=== PATIENT | male | born 1995 | race Caucasian/White ===

== ENCOUNTER 2018-01-20 15:55 | Emergency (ER) | payer BC ==
[2018-01-20] MEDS ORDERED: 0.9 % SODIUM CHLORIDE 1,000 ML BAG IV ONE ×2 (16:49→17:44)
[2018-01-20] MEDS ORDERED: ONDANSETRON HCL IV 4 MG/2 ML VIAL IVP ONE ×2 (16:49→18:35)
[2018-01-20] MEDS ORDERED: PANTOPRAZOLE SODIUM IV 40 MG VIAL IVP ONE (16:52)
--- NOTE | 2018-01-20 16:54 | Emergency Department Record ---
History of Present Illness - General Chief complaint: Vomiting Stated complaint: VOMITING Time Seen by Provider: 01/20/18 16:44 Source: Patient Mode of Arrival: Ambulatory Limitations: No limitations - History of Present Illness Initial comments: 22 yo male presents with nausea and vomiting since this morning. No diarrhea. The patient reports that he has had this occur several times in the morning the last month. He gets nauseated and sweating. Most days this passes. He had a normal appetite last night. He ate 4 slices of pizza. No abdominal surgery history. No fever. No history of GI disease. Currently his pain is epigastric. He denies any pain below the umbilicus. MD complaint: Abdominal pain, Nausea, Vomiting Onset/Timin -: Hour(s) Description of Vomiting: Bilious Location: Diffuse Radiation: Epigastric Severity scale (1-10): 5 Quality: Aching Consistency: Intermittent Improves with: None Worsens with: None Context: Other Associated Symptoms: Nausea/vomiting - Related Data Previous Rx's Medication Instructions Recorded Ondansetron [Zofran Odt] 4 mg PO Q8H #20 tab.rapdis 01/20/18 Pantoprazole Sodium [Protonix] 20 mg PO DAILY #30 tablet. 01/20/18 Allergies Allergy/AdvReac Type Severity Reaction Status Date / Time amoxicillin Allergy Intermediate PT UNSURE Verified 01/20/18 16:11 OF REACTION Travel Screening - Travel/Exposure Within Last 30 Days Have you traveled within the last 30 days?: No Review of Systems Constitutional: Reports: Chills, Weakness Eyes: Denies: Eye discharge, Eye pain, Photophobia, Vision change ENT: Denies: Congestion, Throat pain Respiratory: Denies: Cough, Dyspnea, Hemoptysis, Stridor, Wheezes Cardiovascular: Denies: Chest pain, Palpitations, Syncope Endocrine: Reports: Fatigue. Denies: Polydipsia, Polyuria Gastrointestinal: Reports: As per HPI, Abdominal pain, Nausea, Vomiting. Denies : Constipation, Diarrhea, Hematemesis, Hematochezia, Melena Genitourinary: Denies: Dysuria, Frequency, Hematuria Musculoskeletal: Denies: Arthralgia, Back pain, Neck pain Skin: Denies: Bruising, Change in color, Rash Neurological: Denies: Confusion, Headache, Numbness, Vertigo, Weakness Psychiatric: Denies: Anxiety Hematological/Lymphatic: Denies: Easy bleeding, Easy bruising, Swollen glands Past Medical History - SOCIAL HISTORY Smoking Status: Never smoker Alcohol Use: None Drug Use: None - RESPIRATORY Hx Respiratory Disorders: No - CARDIOVASCULAR Hx Cardio Disorders: No - NEURO Hx Neuro Disorders: No - GI Hx GI Disorders: No - Hx Genitourinary Disorders: No - ENDOCRINE Hx Endocrine Disorders: No - MUSCULOSKELETAL Hx Musculoskeletal Disorders: No - PSYCH Hx Psych Problems: No - HEMATOLOGY/ONCOLOGY Hx Hematology/Oncology Disorders: No Family Medical History Any Significant Family History?: No Physical Exam - General General Appearance: Alert, Oriented x3, Cooperative, No acute distress Limitations: No limitations - Head Head exam: Normal inspection - Eye Eye exam: Normal appearance, PERRL. negative: Conjunctival injection, Scleral icterus - ENT ENT exam: Normal exam, Mucous membranes moist Ear exam: Normal external inspection Nasal Exam: Normal inspection Mouth exam: Normal external inspection Teeth exam: Normal inspection Throat exam: Normal inspection. negative: Tonsillar erythema, Tonsillomegaly, Tonsillar exudate, R peritonsillar mass, L peritonsillar mass - Neck Neck exam: Normal inspection, Full ROM. negative: Tenderness - Respiratory Respiratory exam: Normal lung sounds bilaterally. negative: Respiratory distress - Cardiovascular Cardiovascular Exam: Regular rate, Normal rhythm, Normal heart sounds - GI/Abdominal GI/Abdominal exam: Soft, Tenderness (Very soft abdomen, tender epigastric). negative: Distended, Guarding, Rebound, Rigid - Rectal Rectal exam: Deferred - exam: Deferred - Extremities Extremities exam: Normal inspection, Full ROM, Normal capillary refill. negative: Tenderness - Back Back exam: Reports: Normal inspection, Full ROM. Denies: Muscle spasm, Rash noted, Tenderness - Neurological Neurological exam: Alert, Normal gait, Oriented X3 - Psychiatric Psychiatric exam: Normal affect, Normal mood. negative: Agitated, Anxious - Skin Skin exam: Dry, Intact, Normal color, Warm Course Vital Signs 01/20/18 16:07 Temperature 98.0 F Pulse Rate 91 H Respiratory 20 Rate Blood Pressure 159/112 Pulse Ox 96 - Reevaluation(s) Reevaluation #1: 01/20/18 17:45 The labs were reviewed CBC WBC is 13.1 CMP HCO3 is low at 17 and AG is elevated at 34. He is completing his first bag of IVF. He reports he is feeling much better We discussed the labs. He will be hydrated with addition IVF and the labs with be rechecked He will be referred to GI for his epigastric pain and recurrent vomiting episodes. His nausea is well controlled. 01/20/18 19:18 The patient continues to do very well. Tolerating PO. Nausea very minimal. After the 3rd liter the plan is to recheck the labs. Medical Decision Making - Lab Data Result diagrams: 01/20/18 16:15 01/20/18 16:15 Disposition Disposition: Discharge Clinical Impression: Vomiting, Epigastric pain, Dehydration Disposition: Home, Self-Care Condition: (1) Good Instructions: Acute Nausea and Vomiting (ED) Additional Instructions: Stay well hydrated Avoid alcohol for the next 2 weeks Avoid anti-inflammatory medications such as Motrin. Prescriptions: Ondansetron [Zofran Odt] 4 mg PO Q8H #20 tab.rapdis Pantoprazole Sodium [Protonix] 20 mg PO DAILY #30 tablet. Referrals: PREETHI TEIXEIRA [DOCTOR OF OSTEOPATH] - [facility] Specialty Clinics [Provider Group] Forms: Patient Portal Access Quality - Quality Measures Quality Measures: N/A - Blood Pressure Screening Does Patient Have Any of the Following: No Blood Pressure Classification: Hypertensive Reading Systolic Measurement: 159 Diastolic Measurement: 112 Screening for High Blood Pressure: < Pre-Hypertensive BP, F/U Documented > [ G8950] Pre-Hypertensive Follow-up Interventions: Referral to alternative/primary care provider.
[2018-01-20 16:58] LABS: HEMATOCRIT 48.7 % (42.0-52.0); HEMOGLOBIN 16.9 gm/dl (14.0-18.0); MEAN CELL VOLUME 92.8 fl (81-97); MEAN CORPUSCULAR HEMOGLOBIN 32.2 pg (27-33); MEAN CORPUSCULAR HGB CONC 34.7 g/dl (32-36); PLATELET COUNT 318 K/uL (130-400); RED BLOOD COUNT 5.25 M/uL (4.40-5.70); RED CELL DISTRIBUTION WIDTH 13.2 % (11.5-14.5); WHITE BLOOD COUNT W/O DIFF 13.1 K/uL (4.2-12.2)
[2018-01-20 17:07] LABS: BLOOD UREA NITROGEN 12 mg/dL (6-20); CREATININE 0.6 mg/dL (0.7-1.2); EST GLOMERULAR FILTRATION RATE > 60 mL/min
[2018-01-20 17:08] LABS: TOTAL PROTEIN 8.7 g/dL (6.6-8.7)
[2018-01-20 17:10] LABS: GLUCOSE,RANDOM 102 mg/dL (74-109)
[2018-01-20 17:13] LABS: ALB/GLOB RATIO 1.8 (1.1-1.8); ALBUMIN 5.6 g/dL (4.0-5.0); ALKALINE PHOSPHATASE 81 U/L (40-129); ALT/SGPT 66 U/L (<41); AST/SGOT 64 U/L (10.0-50.0); LIPASE 37 U/L (13-60)
[2018-01-20 17:23] LABS: THYROID STIMULATING HORMONE 1.13 uIU/mL (0.270-4.20)
[2018-01-20] MEDS ORDERED: ONDANSETRON 4 MG ODT TABLET SL ONE (20:05)
[2018-01-20 20:11] LABS: BLOOD UREA NITROGEN 11 mg/dL (6-20); CREATININE 0.5 mg/dL (0.7-1.2); EST GLOMERULAR FILTRATION RATE > 60 mL/min; GLUCOSE,RANDOM 123 mg/dL (74-109)
--- NOTE | 2018-01-20 20:16 | Emergency Department Record ---
History of Present Illness - General Chief complaint: Vomiting Stated complaint: VOMITING Time Seen by Provider: 01/20/18 16:44 Source: Patient Mode of Arrival: Ambulatory Limitations: No limitations - History of Present Illness MD complaint: Abdominal pain, Nausea, Vomiting Onset/Timin -: Hour(s) Description of Vomiting: Bilious Location: Diffuse Radiation: Epigastric Severity scale (1-10): 5 Quality: Aching Consistency: Intermittent Improves with: None Worsens with: None Context: Other Associated Symptoms: Nausea/vomiting - Related Data Previous Rx's Medication Instructions Recorded Ondansetron [Zofran Odt] 4 mg PO Q8H #20 tab.rapdis 01/20/18 Pantoprazole Sodium [Protonix] 20 mg PO DAILY #30 tablet. 01/20/18 Allergies Allergy/AdvReac Type Severity Reaction Status Date / Time amoxicillin Allergy Intermediate PT UNSURE Verified 01/20/18 16:11 OF REACTION Travel Screening - Travel/Exposure Within Last 30 Days Have you traveled within the last 30 days?: No Review of Systems Constitutional: Reports: Chills, Weakness Eyes: Denies: Eye discharge, Eye pain, Photophobia, Vision change ENT: Denies: Congestion, Throat pain Respiratory: Denies: Cough, Dyspnea, Hemoptysis, Stridor, Wheezes Cardiovascular: Denies: Chest pain, Palpitations, Syncope Endocrine: Reports: Fatigue. Denies: Polydipsia, Polyuria Gastrointestinal: Reports: As per HPI, Abdominal pain, Nausea, Vomiting. Denies : Constipation, Diarrhea, Hematemesis, Hematochezia, Melena Genitourinary: Denies: Dysuria, Frequency, Hematuria Musculoskeletal: Denies: Arthralgia, Back pain, Neck pain Skin: Denies: Bruising, Change in color, Rash Neurological: Denies: Confusion, Headache, Numbness, Vertigo, Weakness Psychiatric: Denies: Anxiety Hematological/Lymphatic: Denies: Easy bleeding, Easy bruising, Swollen glands Past Medical History - SOCIAL HISTORY Smoking Status: Never smoker Alcohol Use: None Drug Use: None - RESPIRATORY Hx Respiratory Disorders: No - CARDIOVASCULAR Hx Cardio Disorders: No - NEURO Hx Neuro Disorders: No - GI Hx GI Disorders: No - Hx Genitourinary Disorders: No - ENDOCRINE Hx Endocrine Disorders: No - MUSCULOSKELETAL Hx Musculoskeletal Disorders: No - PSYCH Hx Psych Problems: No - HEMATOLOGY/ONCOLOGY Hx Hematology/Oncology Disorders: No Family Medical History Any Significant Family History?: No Physical Exam - General Limitations: No limitations Course Vital Signs 01/20/18 01/20/18 01/20/18 16:07 17:27 18:36 Temperature 98.0 F 97.9 F Pulse Rate 91 H Pulse Rate [ 72 109 H Pulse Ox Probe] Respiratory 20 20 20 Rate Blood Pressure 159/112 Blood Pressure 155/87 151/88 [Right Arm] Pulse Ox 96 97 98 01/20/18 19:55 Temperature Pulse Rate Pulse Rate [ 84 Pulse Ox Probe] Respiratory 18 Rate Blood Pressure Blood Pressure 160/94 [Right Arm] Pulse Ox 98 - Reevaluation(s) Reevaluation #1: 01/20/18 20:15 Labs reviewed: AG improved to 20 from 17 CO2 24 from 34 Labs overall improved, patient is tolerating PO, and appears stable for discharge at this time. Medical Decision Making - Lab Data Result diagrams: 01/20/18 16:15 01/20/18 19:56 Lab Results 01/20/18 01/20/18 01/20/18 Range/Units 16:15 16:15 19:56 WBC 13.1 H (4.2-12.2) K/uL RBC 5.25 (4.40-5.70) M/uL Hgb 16.9 (14.0-18.0) gm/dl Hct 48.7 (42.0-52.0) % MCV 92.8 (81-97) fl MCH 32.2 (27-33) pg MCHC 34.7 (32-36) g/dl RDW 13.2 (11.5-14.5) % Plt Count 318 (130-400) K/uL MPV 9.0 (7.4-10.4) fl Neutrophils % 85.0 H (47-80) % Eosinophils % Not Reportable Basophils % Not Reportable Lymphocytes 8.0 L (16-45) % Monocytes 7.0 (0-9) % Sodium 144 143 (136-145) mmol/L Potassium 4.0 4.4 (3.4-4.5) mmol/L Chloride 93 L 99 (98-107) mmol/L Carbon Dioxide 17.0 L 20.0 L (22-29) mmol/L Anion Gap 34.0 H 24.0 H (7-16) BUN 12 11 (6-20) mg/dL Creatinine 0.6 L 0.5 L (0.7-1.2) mg/dL Estimated GFR > 60 > 60 mL/min Random Glucose 102 123 H (74-109) mg/dL Calcium 10.5 H 8.6 (8.6-10.0) mg/dL Total Bilirubin 0.60 (0.2-1.0) mg/dL AST 64 H (10.0-50.0) U/L ALT 66 H (<41) U/L Alkaline Phosphatase 81 (40-129) U/L Total Protein 8.7 (6.6-8.7) g/dL Albumin 5.6 H (4.0-5.0) g/dL Globulin 3.1 (1.4-4.8) gm/dL Albumin/Globulin Ratio 1.8 (1.1-1.8) Lipase 37 (13-60) U/L TSH 1.13 (0.270-4.20) uIU/mL Disposition Disposition: Discharge Clinical Impression: Vomiting, Epigastric pain, Dehydration Disposition: Home, Self-Care Condition: (1) Good Instructions: Acute Nausea and Vomiting (ED) Additional Instructions: Stay well hydrated Avoid alcohol for the next 2 weeks Avoid anti-inflammatory medications such as Motrin. Prescriptions: Ondansetron [Zofran Odt] 4 mg PO Q8H #20 tab.rapdis Pantoprazole Sodium [Protonix] 20 mg PO DAILY #30 tablet. Referrals: [facility] Specialty Clinics [Provider Group] PREETHI TEIXEIRA [DOCTOR OF OSTEOPATH] - Forms: Patient Portal Access Time of Disposition: 20:16 Quality - Quality Measures Quality Measures: N/A - Blood Pressure Screening Does Patient Have Any of the Following: No Blood Pressure Classification: Hypertensive Reading Systolic Measurement: 159 Diastolic Measurement: 112 Screening for High Blood Pressure: < First Hypertensive BP, F/U Documented > [ G8950] First Hypertensive Follow-up Interventions: Referral to alternative/primary care provider.
== END 2018-01-20 20:36 | disposition home or self-care (01) ==
LOC: ER 15:55
DX: E86.0 Dehydration (principal); R10.13 Epigastric pain; R11.2 Nausea with vomiting, unspecified
CPT/HCPCS: 99284 ×2; 96376; 96374; 96375; 96361; 83690; 80048; 80053; 84443; 85027; J2405; C9113; J7030

== ENCOUNTER 2018-01-25 13:12 | Emergency (ER) | payer BC ==
[2018-01-25] MEDS ORDERED: DIPHENHYDRAMINE HCL 50 MG/ML VIAL IVP ONE (13:17)
[2018-01-25] MEDS ORDERED: 0.9 % SODIUM CHLORIDE 1,000 ML BAG IV ONE (13:17)
[2018-01-25] MEDS ORDERED: PROMETHAZINE HCL 12.5 MG in 0.9 % SODIUM CHLORIDE 100ML 100 ML IVPB ONE (13:17)
--- NOTE | 2018-01-25 13:23 | Emergency Department Record ---
History of Present Illness - General Chief complaint: Dehydration Stated complaint: dehydration? Time Seen by Provider: 01/25/18 13:13 Source: Patient, Family Mode of Arrival: Ambulatory Limitations: No limitations - History of Present Illness Initial comments: 22 yo male presents with nausea and vomiting since waking up at noon. He reports for the last 1.5 months he is having morning nausea that resolves throughout the day. He has had some occasional epigastric pain. No fevers. No history of abdominal surgery. No sore throat, no headaches, no dizziness, no edema, no other significant changes in his health. He was in the ED earlier in the month and was dehydrated. He was discharged and did well the last week until noon. Occasional alcohol and occasional rare marijuana use. He is home for the summer prior to graduate school. -: Hour(s) (1.5) Location: Other (epigastric pain) Quality: Aching Consistency: Constant Improves with: None Worsens with: Other (Eating) Associated Symptoms: Nausea/vomiting - Oni Coma Scale Eye Response: (4) Open spontaneously Motor Response: (6) Obeys commands Verbal Response: (5) Oriented Two Dot Total: 15 - Related Data Previous Rx's Medication Instructions Recorded Ondansetron [Zofran Odt] 4 mg PO Q8H #20 tab.torreydis 01/20/18 Pantoprazole Sodium [Protonix] 20 mg PO DAILY #30 tablet. 01/20/18 Allergies Allergy/AdvReac Type Severity Reaction Status Date / Time amoxicillin Allergy Intermediate PT UNSURE Verified 01/25/18 13:19 OF REACTION Review of Systems Constitutional: Denies: Chills, Fever, Malaise, Weakness Eyes: Denies: Eye discharge, Eye pain, Photophobia, Vision change ENT: Denies: Congestion, Throat pain Respiratory: Denies: Cough Cardiovascular: Denies: Chest pain, Palpitations, Syncope Endocrine: Reports: Fatigue Gastrointestinal: Reports: As per HPI, Abdominal pain, Nausea, Vomiting. Denies : Hematemesis, Hematochezia Genitourinary: Denies: Dysuria, Frequency Musculoskeletal: Denies: Arthralgia, Back pain, Joint swelling, Myalgia Skin: Denies: Bruising, Change in color, Rash Neurological: Denies: Headache, Numbness, Vertigo, Weakness Psychiatric: Denies: Anxiety Hematological/Lymphatic: Denies: Blood Clots, Easy bleeding, Easy bruising, Swollen glands Past Medical History - SOCIAL HISTORY Smoking Status: Never smoker Drug Use: None - RESPIRATORY Hx Respiratory Disorders: No - CARDIOVASCULAR Hx Cardio Disorders: No - NEURO Hx Neuro Disorders: No - GI Hx GI Disorders: No - Hx Genitourinary Disorders: No - ENDOCRINE Hx Endocrine Disorders: No - MUSCULOSKELETAL Hx Musculoskeletal Disorders: No - PSYCH Hx Psych Problems: No - HEMATOLOGY/ONCOLOGY Hx Hematology/Oncology Disorders: No Physical Exam - General General Appearance: Alert, Oriented x3, Cooperative, No acute distress Limitations: No limitations - Head Head exam: Normal inspection - Eye Eye exam: Normal appearance, PERRL. negative: Conjunctival injection, Scleral icterus - ENT ENT exam: Normal exam, Mucous membranes moist Ear exam: Normal external inspection Nasal Exam: Normal inspection Mouth exam: Normal external inspection - Neck Neck exam: Normal inspection, Full ROM. negative: Tenderness - Respiratory Respiratory exam: Normal lung sounds bilaterally. negative: Respiratory distress - Cardiovascular Cardiovascular Exam: Regular rate, Normal rhythm, Normal heart sounds - GI/Abdominal GI/Abdominal exam: Soft, Tenderness (epigastric). negative: Distended, Guarding , Rebound, Rigid - Rectal Rectal exam: Deferred - exam: Deferred - Extremities Extremities exam: Normal inspection, Full ROM, Normal capillary refill. negative: Tenderness - Back Back exam: Denies: CVA tenderness (R), CVA tenderness (L) - Neurological Neurological exam: Alert, Oriented X3 - Psychiatric Psychiatric exam: Normal affect, Normal mood - Skin Skin exam: Dry, Intact, Normal color, Warm Course - Reevaluation(s) Reevaluation #1: 01/25/18 14:01 The CBC was reviewed. No acute changes. 01/25/18 14:25 The labs were reviewed. No acute changes on the CBC The AG is 20 with normal HCO3. 01/25/18 16:[address] scan was reviewed. Non specific rectal non distension and TI non distension without inflammation. NO other acute findings. The patient was informed of the results. The plan for his recurrent nausea and vomiting is still the GI referral that was made last visit. He will continue a low residual diet, call his PCP Saturday to inform him of the visits and review all records. He is to have his BP rechecked as well. He is aware of the reasons to return and the importance for close follow up Medical Decision Making - Lab Data Result diagrams: 01/25/18 13:26 01/25/18 13:26 Disposition Disposition: Discharge Clinical Impression: Vomiting, Epigastric pain, Dehydration Disposition: Home, Self-Care Condition: (1) Good Instructions: Abdominal Pain (ED) Additional Instructions: Call your doctor first of the week to ask about assistance with the GI referral , to have the BP rechecked and to go over all the tests from the ER visits. Check your blood pressure on 2 or three occasions before your visit and record the results. Show the results to Dr Aparicio. Forms: Patient Portal Access Time of Disposition: 16:55 Quality - Quality Measures Quality Measures: N/A - Blood Pressure Screening Does Patient Have Any of the Following: No Blood Pressure Classification: Hypertensive Reading Systolic Measurement: 157 Diastolic Measurement: 110 Screening for High Blood Pressure: < Pre-Hypertensive BP, F/U Documented > [ G8950] Pre-Hypertensive Follow-up Interventions: Referral to alternative/primary care provider.
[2018-01-25 13:47] LABS: BASO % 0.5 % (0-6); EOS % 3.1 % (0-6); GRAN % 54.4 % (47-80); HEMATOCRIT 46.6 % (42.0-52.0); HEMOGLOBIN 16.2 gm/dl (14.0-18.0); MEAN CORPUSCULAR HEMOGLOBIN 32.3 pg (27-33); MEAN CORPUSCULAR HGB CONC 34.8 g/dl (32-36); MEAN PLATELET VOLUME 8.7 fl (7.4-10.4); PLATELET COUNT 285 K/uL (130-400); RED BLOOD COUNT 5.01 M/uL (4.40-5.70); RED CELL DISTRIBUTION WIDTH 13.2 % (11.5-14.5); WHITE BLOOD COUNT W/O DIFF 6.2 K/uL (4.2-12.2)
[2018-01-25 13:56] LABS: BLOOD UREA NITROGEN 7 mg/dL (6-20); CREATININE 0.8 mg/dL (0.7-1.2); EST GLOMERULAR FILTRATION RATE > 60 mL/min; TOTAL PROTEIN 8.3 g/dL (6.6-8.7)
[2018-01-25 13:58] LABS: GLUCOSE,RANDOM 131 mg/dL (74-109)
[2018-01-25 14:01] LABS: ALB/GLOB RATIO 1.7 (1.1-1.8); ALBUMIN 5.2 g/dL (4.0-5.0); ALKALINE PHOSPHATASE 69 U/L (40-129); ALT/SGPT 68 U/L (<41); AST/SGOT 53 U/L (10.0-50.0); LIPASE 45 U/L (13-60)
[2018-01-25] MEDS ORDERED: ONDANSETRON HCL IV 4 MG/2 ML VIAL IVP ONE (14:01)
[2018-01-25] MEDS ORDERED: PANTOPRAZOLE SODIUM IV 40 MG VIAL IVP ONE (14:01)
[2018-01-25 16:33] LABS: URINE APPEARANCE CLEAR; URINE BILIRUBIN NEGATIVE (NEGATIVE); URINE BLOOD NEGATIVE (NEGATIVE); URINE COLOR YELLOW; URINE GLUCOSE (UA) NEGATIVE (NEGATIVE); URINE KETONE NEGATIVE (NEGATIVE); URINE LEUKOCYTE ESTERASE NEGATIVE (NEGATIVE); URINE NITRITE NEGATIVE (NEGATIVE); URINE PROTEIN NEGATIVE (NEGATIVE); URINE UROBILINOGEN 0.2 E.U./dL (0.20 - 1.00)
--- NOTE | 2018-01-27 08:54 | CT SCAN REPORT ---
EXAM: CT OF THE ABDOMEN AND PELVIS WITH CONTRAST HISTORY: UPPER ABDOMINAL PAIN WITH VOMITING FOR SIX WEEKS. DEHYDRATION. TECHNIQUE: Following oral and intravenous contrast administration, helical CT examination of the abdomen and pelvis was performed including delayed images through the kidneys with 100 ml of Omnipaque 300 utilized. Comparison: None. FINDINGS: The lung bases are clear. No pleural or pericardial effusion. The heart is not enlarged. There are geographic areas of mild decreased density scattered within the liver consistent with steatosis. No suspicious focal hepatic lesion is, however, seen. The spleen, pancreas, adrenal glands, and kidneys are normal in appearance. The gallbladder is unremarkable and no biliary ductal dilatation is seen. The portal vein is patent. The central mesenteric vasculature appears patent. The abdominal aorta and iliac arteries appear patent and normal in caliber. No intraabdominal nor retroperitoneal lymphadenopathy is demonstrated. No pelvic mass, lymphadenopathy, or free pelvic fluid is seen. No intrinsic urinary bladder abnormality is identified. The wall of the rectum appears mildly prominent in thickness. This may relate to incomplete distention though proctitis would be difficult to exclude. The appendix is visualized and normal in appearance. There is borderline wall thickening of the terminal ileum. Again, this may relate to phase of peristalsis/lack of distention with mild inflammatory change less likely. No other evidence of bowel abnormality. The abdominal wall is intact. No lytic or blastic bone lesion. IMPRESSION: 1. APPARENT MILD WALL THICKENING OF THE RECTUM UNIFORMLY. THIS MAY RELATE TO INCOMPLETE DISTENTION THOUGH MILD PROCTITIS WOULD BE DIFFICULT TO EXCLUDE. BORDERLINE WALL THICKENING OF THE TERMINAL ILEUM LIKELY RELATES TO PHASE OF PERISTALSIS/LACK OF DISTENTION WITH MILD INFLAMMATORY CHANGE LESS LIKELY. 2. MILD HEPATIC STEATOSIS. JOB NUMBER: [id number] [facility]
== END 2018-01-25 17:06 | disposition home or self-care (01) ==
LOC: ER 13:12
DX: E86.0 Dehydration (principal); R10.13 Epigastric pain; R11.2 Nausea with vomiting, unspecified; R03.0 Elevated blood-pressure reading, without diagnosis of hypertension
CPT/HCPCS: 74177; 80053; 81003; 83690; 85025; 96361; 96365; 96375; 99284; C9113; J1200; J2405; J2550; J7030

== ENCOUNTER 2018-02-02 06:55 | Emergency (ER) | payer BC ==
[2018-02-02] MEDS ORDERED: 0.9 % SODIUM CHLORIDE 1,000 ML BAG IV ONE (07:12)
[2018-02-02] MEDS ORDERED: ONDANSETRON HCL IV 4 MG/2 ML VIAL IV ONE (07:12)
[2018-02-02 07:22] LABS: BASO % 0.3 % (0-6); EOS % 1.3 % (0-6); GRAN % 48.1 % (47-80); HEMATOCRIT 45.2 % (42.0-52.0); HEMOGLOBIN 16.3 gm/dl (14.0-18.0); LYMPH % 39.5 % (16-45); MEAN CELL VOLUME 91.5 fl (81-97); MEAN CORPUSCULAR HGB CONC 36.1 g/dl (32-36); MEAN PLATELET VOLUME 8.5 fl (7.4-10.4); MONO % 10.8 % (0-9); PLATELET COUNT 359 K/uL (130-400); RED BLOOD COUNT 4.94 M/uL (4.40-5.70); RED CELL DISTRIBUTION WIDTH 13.2 % (11.5-14.5); WHITE BLOOD COUNT W/O DIFF 6.7 K/uL (4.2-12.2)
--- NOTE | 2018-02-02 07:22 | Emergency Department Record ---
History of Present Illness - General Chief Complaint: Abdominal Pain Stated Complaint: ABD PAIN/VOMITING Time Seen by Provider: 02/02/18 07:12 Source: Patient, RN notes reviewed Mode of Arrival: Ambulatory - History of Present Illness Initial Comments: epigastric abdominal pain and vomiting started at 6am and he had two other ED visits in the last couple weeks for the same thing and CT of Abd pelvic essentially negative and he has seen Dr Ace and scheduled for an EGD on February 18. reviewed previous ED visits and he denies alcohol use or marijuanna use. MD Complaint: Abdominal pain Onset/Timin -: Hour(s) Location: Epigastric Radiation: None Severity scale (1-10): 4 Quality: Stabbing Consistency: Constant Improves With: Nothing Worsens With: Vomiting Associated Symptoms: Denies other symptoms - Related Data Previous Rx's Medication Instructions Recorded Ondansetron [Zofran Odt] 4 mg PO Q8H #20 tab.torreydis 01/20/18 Pantoprazole Sodium [Protonix] 20 mg PO DAILY #30 tablet. 01/20/18 Ondansetron HCl [Zofran] 4 mg PO Q6HR #20 tablet 02/02/18 Allergies Allergy/AdvReac Type Severity Reaction Status Date / Time amoxicillin Allergy Intermediate PT UNSURE Verified 02/02/18 07:01 OF REACTION Travel Screening - Travel/Exposure Within Last 30 Days Have you traveled within the last 30 days?: No - Travel/Exposure Within Last Year Have you traveled outside the [place] in the last year?: Yes Location Detail:: [place] - Additonal Travel Details Have you been exposed to anyone with a communicable illness?: No - Travel Symptoms Symptom Screening: None Review of Systems Reviewed: No additional complaints except as noted below Constitutional: Reports: As per HPI. Denies: Chills, Fever, Malaise, Night sweats, Weakness, Weight change Eyes: Reports: As per HPI. Denies: Eye discharge, Eye pain, Photophobia, Vision change ENT: Reports: As per HPI. Denies: Congestion, Dental pain, Ear pain, Epistaxis , Hearing loss, Throat pain Respiratory: Reports: As per HPI. Denies: Cough, Dyspnea, Hemoptysis, Stridor, Wheezes Cardiovascular: Reports: As per HPI. Denies: Arrhythmia, Chest pain, Dyspnea on exertion, Edema, Murmurs, Orthopnea, Palpitations, Paroxysmal nocturnal dyspnea, Rheumatic Fever, Syncope Endocrine: Reports: As per HPI. Denies: Fatigue, Heat or cold intolerance, Polydipsia, Polyuria Gastrointestinal: Reports: As per HPI, Abdominal pain, Nausea, Vomiting. Denies : Constipation, Diarrhea, Hematemesis, Hematochezia, Melena Genitourinary: Reports: As per HPI. Denies: Dysuria, Frequency, Hematuria, Incontinence, Retention, Testicular pain, Testicular mass, Urgency Musculoskeletal: Reports: As per HPI. Denies: Arthralgia, Back pain, Gout, Joint swelling, Myalgia, Neck pain Skin: Reports: As per HPI. Denies: Bruising, Change in color, Change in hair/ nails, Lesions, Pruritus, Rash Neurological: Reports: As per HPI. Denies: Abnormal gait, Confusion, Headache, Numbness, Paresthesias, Seizure, Tingling, Tremors, Vertigo, Weakness Psychiatric: Reports: As per HPI. Denies: Anxiety, Auditory hallucinations, Depression, Homicidal thoughts, Suicidal thoughts, Visual hallucinations Hematological/Lymphatic: Reports: As per HPI. Denies: Anemia, Blood Clots, Easy bleeding, Easy bruising, Swollen glands Past Medical History - SOCIAL HISTORY Smoking Status: Never smoker Alcohol Use: Occasional Drug Use: None - RESPIRATORY Hx Respiratory Disorders: No - CARDIOVASCULAR Hx Cardio Disorders: No - NEURO Hx Neuro Disorders: No - GI Hx GI Disorders: No - Hx Genitourinary Disorders: No - ENDOCRINE Hx Endocrine Disorders: No - MUSCULOSKELETAL Hx Musculoskeletal Disorders: No - PSYCH Hx Psych Problems: No - HEMATOLOGY/ONCOLOGY Hx Hematology/Oncology Disorders: No Family Medical History Any Significant Family History?: Yes Hx Heart Disease: Mother, Grandparents Physical Exam - General General Appearance: Alert, Oriented x3, Cooperative, No acute distress - Head Head exam: Normal inspection - Eye Eye exam: Normal appearance, PERRL Pupils: Normal accommodation - ENT ENT exam: Normal exam, Mucous membranes moist, Normal external ear exam, Normal orophraynx, TM's normal bilaterally Ear exam: Normal external inspection. negative: External canal tenderness Nasal Exam: Normal inspection. negative: Discharge, Sinus tenderness Mouth exam: Normal external inspection, Tongue normal Teeth exam: Normal inspection. negative: Dental caries Throat exam: Normal inspection. negative: Tonsillar erythema, Tonsillar exudate - Neck Neck exam: Normal inspection, Full ROM. negative: Tenderness - Respiratory Respiratory exam: Normal lung sounds bilaterally. negative: Respiratory distress - Cardiovascular Cardiovascular Exam: Regular rate, Normal rhythm, Normal heart sounds - GI/Abdominal GI/Abdominal exam: Soft, Normal bowel sounds, Tenderness (epigastric pain). negative: Distended, Guarding, Rebound, Rigid - Rectal Rectal exam: Deferred - exam: Deferred - Extremities Extremities exam: Normal inspection, Full ROM, Normal capillary refill. negative: Tenderness - Back Back exam: Reports: Normal inspection, Full ROM. Denies: Muscle spasm, Rash noted, Tenderness - Neurological Neurological exam: Alert, Normal gait, Oriented X3, Reflexes normal - Psychiatric Psychiatric exam: Normal affect, Normal mood - Skin Skin exam: Dry, Intact, Normal color, Warm Course Vital Signs 02/02/18 07:02 Temperature 98.8 F Pulse Rate 104 H Respiratory 20 Rate Blood Pressure 135/109 Pulse Ox 98 - Reevaluation(s) Reevaluation #1: 02/02/18 08:13 feeling better Medical Decision Making - Data Complexity MDM Data: Labs Ordered and/or Reviewed - Lab Data Result diagrams: 02/02/18 07:00 02/02/18 07:00 Disposition Clinical Impression: Dehydration, Epigastric pain Vomiting Qualifiers: Vomiting type: unspecified Vomiting Intractability: non-intractable Nausea presence: with nausea Qualified Code(s): R11.2 - Nausea with vomiting, unspecified Disposition: Home, Self-Care Condition: (1) Good Instructions: Acute Nausea and Vomiting (ED) Additional Instructions: follow up with Dr. Garcia follow up with family Dr. matos PRN stop eating food at 8 pm Prescriptions: Ondansetron HCl [Zofran] 4 mg PO Q6HR #20 tablet Forms: Patient Portal Access Time of Disposition: 08:07 Quality - Quality Measures Quality Measures: N/A - Blood Pressure Screening Does Patient Have Any of the Following: No Blood Pressure Classification: Hypertensive Reading Systolic Measurement: 135 Diastolic Measurement: 109 Screening for High Blood Pressure: < Pre-Hypertensive BP, F/U Documented > [ G8950] Pre-Hypertensive Follow-up Interventions: Referral to alternative/primary care provider.
[2018-02-02 07:42] LABS: BLOOD UREA NITROGEN 5 mg/dL (6-20); CREATININE 0.8 mg/dL (0.7-1.2); EST GLOMERULAR FILTRATION RATE > 60 mL/min; TOTAL PROTEIN 7.9 g/dL (6.6-8.7)
[2018-02-02 07:44] LABS: GLUCOSE,RANDOM 126 mg/dL (74-109)
[2018-02-02 07:47] LABS: ALBUMIN 4.9 g/dL (4.0-5.0); ALKALINE PHOSPHATASE 74 U/L (40-129); ALT/SGPT 34 U/L (<41); AST/SGOT 42 U/L (10.0-50.0); LIPASE 43 U/L (13-60)
[2018-02-02 07:49] LABS: BILIRUBIN,DIRECT < 0.2 mg/dL (0-0.3)
[2018-02-02] MEDS ORDERED: ONDANSETRON HCL IV 4 MG/2 ML VIAL IVP ONE (08:09)
== END 2018-02-02 08:43 | disposition home or self-care (01) ==
LOC: ER 06:55
DX: E86.0 Dehydration (principal); R10.31 Right lower quadrant pain; R11.2 Nausea with vomiting, unspecified
CPT/HCPCS: 99284 ×2; 96376; 96374; 96361; 83690; 85025; 80076; 80048; J2405; J7030

== ENCOUNTER 2018-02-03 06:55 | Emergency (ER) | payer BC ==
[2018-02-03] MEDS ORDERED: 0.9 % SODIUM CHLORIDE 1,000 ML BAG IV ONE (07:21)
[2018-02-03] MEDS ORDERED: ONDANSETRON HCL IV 4 MG/2 ML VIAL IV ONE (07:21)
[2018-02-03 07:41] LABS: BASO % 0.5 % (0-6); EOS % 0.6 % (0-6); GRAN % 59.9 % (47-80); HEMATOCRIT 47.9 % (42.0-52.0); HEMOGLOBIN 16.4 gm/dl (14.0-18.0); LYMPH % 28.5 % (16-45); MEAN CELL VOLUME 93.2 fl (81-97); MEAN CORPUSCULAR HEMOGLOBIN 31.9 pg (27-33); MEAN CORPUSCULAR HGB CONC 34.2 g/dl (32-36); MEAN PLATELET VOLUME 8.7 fl (7.4-10.4); MONO % 10.5 % (0-9); PLATELET COUNT 381 K/uL (130-400); RED BLOOD COUNT 5.14 M/uL (4.40-5.70); RED CELL DISTRIBUTION WIDTH 13.4 % (11.5-14.5); WHITE BLOOD COUNT W/O DIFF 7.9 K/uL (4.2-12.2)
[2018-02-03 07:53] LABS: BLOOD UREA NITROGEN 5 mg/dL (6-20); CREATININE 0.9 mg/dL (0.7-1.2); EST GLOMERULAR FILTRATION RATE > 60 mL/min
[2018-02-03 07:54] LABS: TOTAL PROTEIN 8.3 g/dL (6.6-8.7)
[2018-02-03 07:56] LABS: GLUCOSE,RANDOM 140 mg/dL (74-109)
[2018-02-03] MEDS ORDERED: PROMETHAZINE HCL 12.5 MG in 0.9 % SODIUM CHLORIDE 100ML 100 ML IVPB ONE ×2 (07:57→08:31)
[2018-02-03 07:58] LABS: ALB/GLOB RATIO 1.8 (1.1-1.8); ALBUMIN 5.3 g/dL (4.0-5.0); ALKALINE PHOSPHATASE 78 U/L (40-129); ALT/SGPT 37 U/L (<41); AST/SGOT 55 U/L (10.0-50.0); LIPASE 38 U/L (13-60)
--- NOTE | 2018-02-03 08:09 | Emergency Department Record ---
History of Present Illness - General Chief complaint: Vomiting Stated complaint: VOMITING Time Seen by Provider: 02/03/18 07:02 Source: Patient Mode of Arrival: Ambulatory Limitations: No limitations - History of Present Illness Initial comments: pt here for n/v. pt has been here multiple times for the same reason lately. pt is scheduled for a scope MD complaint: Nausea, Vomiting Onset/Timin -: Week(s) Description of Vomiting: Bilious Associated Abdominal Pain: Yes Location: RUQ Consistency: Intermittent Improves with: Medication Associated Symptoms: Nausea/vomiting, Other - Related Data Previous Rx's Medication Instructions Recorded Ondansetron [Zofran Odt] 4 mg PO Q8H #20 tab.rapdis 01/20/18 Pantoprazole Sodium [Protonix] 20 mg PO DAILY #30 tablet. 01/20/18 Ondansetron HCl [Zofran] 4 mg PO Q6HR #20 tablet 02/02/18 Ondansetron [Zofran Odt] 4 mg PO Q8H #10 tab.rapdis 02/03/18 Promethazine HCl [Phenergan] 25 mg RC Q12HR #10 supp.rect 02/03/18 Allergies Allergy/AdvReac Type Severity Reaction Status Date / Time amoxicillin Allergy Intermediate PT UNSURE Verified 02/02/18 07:01 OF REACTION Travel Screening - Travel/Exposure Within Last 30 Days Have you traveled within the last 30 days?: No - Travel/Exposure Within Last Year Have you traveled outside the [place] in the last year?: No - Additonal Travel Details Have you been exposed to anyone with a communicable illness?: No - Travel Symptoms Symptom Screening: None Review of Systems Reviewed: No additional complaints except as noted below Constitutional: Reports: As per HPI. Denies: Chills, Fever, Malaise, Night sweats, Weakness, Weight change Eyes: Reports: As per HPI. Denies: Eye discharge, Eye pain, Photophobia, Vision change ENT: Reports: As per HPI. Denies: Congestion, Dental pain, Ear pain, Epistaxis , Hearing loss, Throat pain Respiratory: Reports: As per HPI. Denies: Cough, Dyspnea, Hemoptysis, Stridor, Wheezes Cardiovascular: Reports: As per HPI. Denies: Arrhythmia, Chest pain, Dyspnea on exertion, Edema, Murmurs, Orthopnea, Palpitations, Paroxysmal nocturnal dyspnea, Rheumatic Fever, Syncope Endocrine: Reports: As per HPI. Denies: Fatigue, Heat or cold intolerance, Polydipsia, Polyuria Gastrointestinal: Reports: As per HPI, Abdominal pain, Nausea, Vomiting. Denies : Constipation, Diarrhea, Hematemesis, Hematochezia, Melena Genitourinary: Reports: As per HPI. Denies: Dysuria, Frequency, Hematuria, Incontinence, Retention, Testicular pain, Testicular mass, Urgency Musculoskeletal: Reports: As per HPI. Denies: Arthralgia, Back pain, Gout, Joint swelling, Myalgia, Neck pain Skin: Reports: As per HPI. Denies: Bruising, Change in color, Change in hair/ nails, Lesions, Pruritus, Rash Neurological: Reports: As per HPI. Denies: Abnormal gait, Confusion, Headache, Numbness, Paresthesias, Seizure, Tingling, Tremors, Vertigo, Weakness Psychiatric: Reports: As per HPI. Denies: Anxiety, Auditory hallucinations, Depression, Homicidal thoughts, Suicidal thoughts, Visual hallucinations Hematological/Lymphatic: Reports: As per HPI. Denies: Anemia, Blood Clots, Easy bleeding, Easy bruising, Swollen glands Past Medical History - SOCIAL HISTORY Smoking Status: Never smoker Alcohol Use: None Drug Use: None - RESPIRATORY Hx Respiratory Disorders: No - CARDIOVASCULAR Hx Cardio Disorders: No - NEURO Hx Neuro Disorders: No - GI Hx GI Disorders: No - Hx Genitourinary Disorders: No - ENDOCRINE Hx Endocrine Disorders: No - MUSCULOSKELETAL Hx Musculoskeletal Disorders: No - PSYCH Hx Psych Problems: No - HEMATOLOGY/ONCOLOGY Hx Hematology/Oncology Disorders: No Family Medical History Any Significant Family History?: No Hx Heart Disease: Mother, Grandparents Physical Exam - General General Appearance: Alert, Oriented x3, Cooperative, Mild distress - Head Head exam: Normal inspection - Eye Eye exam: Normal appearance, PERRL, EOMI Pupils: Normal accommodation - ENT ENT exam: Normal exam, Mucous membranes moist, Normal external ear exam, Normal orophraynx Ear exam: Normal external inspection. negative: External canal tenderness Nasal Exam: Normal inspection. negative: Discharge, Sinus tenderness Mouth exam: Normal external inspection, Tongue normal Teeth exam: Normal inspection. negative: Dental caries Throat exam: Normal inspection. negative: Tonsillar erythema, Tonsillar exudate - Neck Neck exam: Normal inspection, Full ROM. negative: Tenderness - Respiratory Respiratory exam: Normal lung sounds bilaterally. negative: Respiratory distress - Cardiovascular Cardiovascular Exam: Normal rhythm, Normal heart sounds, Tachycardia - GI/Abdominal GI/Abdominal exam: Soft, Normal bowel sounds, Tenderness - Rectal Rectal exam: Deferred - exam: Deferred - Extremities Extremities exam: Normal inspection, Full ROM, Normal capillary refill. negative: Tenderness - Back Back exam: Reports: Normal inspection, Full ROM. Denies: Muscle spasm, Rash noted, Tenderness - Neurological Neurological exam: Alert, CN II-XII intact, Normal gait, Oriented X3 - Psychiatric Psychiatric exam: Normal affect, Normal mood - Skin Skin exam: Dry, Intact, Normal color, Warm Course Vital Signs 02/03/18 07:01 Temperature 98.5 F Pulse Rate [ 120 H Pulse Ox Probe] Respiratory 24 Rate Blood Pressure 160/126 [Right Arm] Pulse Ox 97 Medical Decision Making - Lab Data Result diagrams: 02/03/18 07:00 02/03/18 07:00 Lab Results 02/03/18 02/03/18 02/03/18 Range/Units 07:00 07:00 07:00 WBC 7.9 (4.2-12.2) K/uL RBC 5.14 (4.40-5.70) M/uL Hgb 16.4 (14.0-18.0) gm/dl Hct 47.9 (42.0-52.0) % MCV 93.2 (81-97) fl MCH 31.9 (27-33) pg MCHC 34.2 (32-36) g/dl RDW 13.4 (11.5-14.5) % Plt Count 381 (130-400) K/uL MPV 8.7 (7.4-10.4) fl Gran % 59.9 (47-80) % Lymphocytes % 28.5 (16-45) % Monocytes % 10.5 H (0-9) % Eosinophils % 0.6 (0-6) % Basophils % 0.5 (0-6) % Sodium 146 H (136-145) mmol/L Potassium 4.5 (3.4-4.5) mmol/L Chloride 96 L (98-107) mmol/L Carbon Dioxide 26.0 (22-29) mmol/L Anion Gap 24.0 H (7-16) BUN 5 L (6-20) mg/dL Creatinine 0.9 (0.7-1.2) mg/dL Estimated GFR > 60 mL/min Random Glucose 140 H (74-109) mg/dL Lactic Acid 3.2 H (0.5-2.2) mmol/L Calcium 9.9 (8.6-10.0) mg/dL Total Bilirubin 0.40 (0.2-1.0) mg/dL Total Protein 8.3 (6.6-8.7) g/dL Disposition Disposition: Discharge Clinical Impression: Epigastric pain, Dehydration Vomiting Qualifiers: Vomiting type: cyclical vomiting Vomiting Intractability: intractable Nausea presence: with nausea Qualified Code(s): G43.A1 - Cyclical vomiting, intractable Hypertension Qualifiers: Hypertension type: unspecified Qualified Code(s): I10 - Essential (primary) hypertension Disposition: Home, Self-Care Condition: (1) Good Instructions: Acute Nausea and Vomiting (ED), Abdominal Pain (ED), Hypertension (ED) Additional Instructions: follow up with GI doctor. retrun sooner if worse Prescriptions: Promethazine HCl [Phenergan] 25 mg RC Q12HR #10 supp.rect Ondansetron [Zofran Odt] 4 mg PO Q8H #10 tab.rapdis Forms: Patient Portal Access Quality - Quality Measures Quality Measures: N/A - Blood Pressure Screening Does Patient Have Any of the Following: No Blood Pressure Classification: Hypertensive Reading Systolic Measurement: 162 Diastolic Measurement: 110 Screening for High Blood Pressure: < First Hypertensive BP, F/U Documented > [ G8950] First Hypertensive Follow-up Interventions: Follow-up with rescreen GT 1 day and LT 4 weeks.
[2018-02-03 10:21] LABS: URINE APPEARANCE CLEAR; URINE BILIRUBIN NEGATIVE (NEGATIVE); URINE BLOOD NEGATIVE (NEGATIVE); URINE COLOR YELLOW; URINE GLUCOSE (UA) NEGATIVE (NEGATIVE); URINE KETONE NEGATIVE (NEGATIVE); URINE LEUKOCYTE ESTERASE NEGATIVE (NEGATIVE); URINE NITRITE NEGATIVE (NEGATIVE); URINE PROTEIN TRACE (NEGATIVE)
--- NOTE | 2018-02-05 07:23 | CT SCAN REPORT ---
DATE: 02/03/2018. EXAM: CT OF THE BRAIN WITHOUT CONTRAST. HISTORY: Vertigo. TECHNIQUE: Sequential axial images were obtained from the foramen magnum to the vertex without contrast administration. FINDINGS: The brain volume is normal. There is no large territorial infarct, hemorrhage, mass effect or midline shift. No extra-axial fluid collection. The orbits, paranasal sinuses, and mastoid air cells are normal. IMPRESSION: NO ACUTE INTRACRANIAL ABNORMALITIES APPRECIATED. JOB NUMBER: [id number] MTDD
== END 2018-02-03 10:40 | disposition home or self-care (01) ==
LOC: ER 06:55
DX: G43.A1 Cyclical vomiting, in migraine, intractable (principal); E86.0 Dehydration; R10.13 Epigastric pain; R42 Dizziness and giddiness; I10 Essential (primary) hypertension
CPT/HCPCS: 99284 ×2; 96365; 96375; 83605; 83690; 85025; 80053; 81003; 70450; J2405; J2550; J7030

== ENCOUNTER 2018-02-17 08:24 | Day surgery (SDC) | payer BC ==
[~2018-02-17 08:24] MED LIST: ACETAMINOPHEN 1,000 MG/100 ML BTL IV ONE; FAMOTIDINE 20MG TABLET PO ONE; MECLIZINE 25 MG TABLET PO ONE; METOCLOPRAMIDE 10 MG TABLET PO ONE
[2018-02-17] MEDS ORDERED: FENTANYL PF 100MCG/2ML VIAL IV ONE (08:25)
[2018-02-17] MEDS ORDERED: HYDROCODONE/APAP 5/325MG TABLET PO ONE (08:25)
[2018-02-17] MEDS ORDERED: LIDOCAINE 2% MDV (20MG/ML) 20ML VIAL IV ONE (08:25)
[2018-02-17] MEDS ORDERED: NEOSTIGMINE 1 MG/1 ML,10ML VIAL IV ONE (08:25)
[2018-02-17] MEDS ORDERED: ONDANSETRON HCL IV 4 MG/2 ML VIAL IVP ONE (08:25)
[2018-02-17] MEDS ORDERED: HYDROMORPHONE HCL 2 MG/ML VIAL IV ONE (08:25)
[2018-02-17] MEDS ORDERED: SEVOFLURANE 250 ML INH ONE (08:25)
[2018-02-17] MEDS ORDERED: KETOROLAC 30 MG/ML VIAL IVP ONE (08:25)
[2018-02-17] MEDS ORDERED: PROPOFOL 10 MG/ML VIAL IV ONE (08:25)
[2018-02-17] MEDS ORDERED: ROCURONIUM BROMIDE 50MG/5ML VIAL IV ONE (08:25)
[2018-02-17] MEDS ORDERED: SUCCINYLCHOLINE 20 MG/ML 10ML IVP ONE (08:25)
[2018-02-17] MEDS ORDERED: MIDAZOLAM HCL 2MG/2ML VIAL IV ONE (08:25)
[2018-02-17] MEDS ORDERED: GLYCOPYRROLATE 0.2 MG/ML ML IV ONE (08:25)
[2018-02-17] MEDS ORDERED: BUPIVACAINE 0.25% W/EPI MPF 30ML VIAL IVP ONE (08:25)
--- NOTE | 2018-02-17 13:40 | Operative Note ---
DATE OF SURGERY: 02/17/2018 Surgeon: Bear Armando DO PREOPERATIVE DIAGNOSIS: Symptomatic biliary dyskinesia. POSTOPERATIVE DIAGNOSIS: Symptomatic biliary dyskinesia. OPERATION: Laparoscopic cholecystectomy. Indication: The patient is a 21-year-old male who is having ongoing right subcostal postprandial pain. He has had multiple workups including CT scan, upper endoscopy, and multiple ER visits. He also had HIDA scan. This did show a mildly impaired ejection fraction with reproduced discomfort. We did discuss cholecystectomy versus medical management. He desired surgical intervention. Risks include but are not limited to bleeding, infection, ductal injury, possible conversion to open, postoperative bile leak, nonresolution of his symptoms. He understood this fully. PROCEDURE: Thereafter, consent was signed and questions answered. He was taken to the operating room and placed in a supine position. General anesthesia was administered per the department of anesthesia. The patient's abdomen was prepped and draped in the usual sterile fashion. The infraumbilical region was anesthetized with a total of 2 mL of 0.25% Sensorcaine with epinephrine. A 2 cm infraumbilical incision was made. This was carried down to the anterior rectus fascia. This was incised. Manisha clamps were placed on the fascial edges and brought up into the wound. Stay sutures of 0 Vicryl were placed. Posterior rectus sheath was identified and incised. The peritoneal cavity was entered bluntly. At this time, a 10 mm blunt Ashish port was placed. Adequate pneumoperitoneum was established. Under direct visualization, additional 5 mm epigastric and two 5 mm right subcostal ports were placed. The gallbladder was retracted in a cephalad and lateral direction opening up the angle of Calot. The hepatocystic triangle was thoroughly dissected out. There was no aberrant anatomy, no posterior ductal structures. The cystic duct and cystic artery were clearly identified. The distal half of the gallbladder was released from the cystic plate elongating our retroductal window. The cystic duct and cystic artery were doubly clipped and cut in a standard fashion. Gallbladder was then taken off the liver bed with Frankie harmonic. This was brought out through the umbilical port. Right upper quadrant was rechecked and found to be hemostatic. No bleeding. No bile leak. No bowel injury noted. The patient was leveled out. The pneumoperitoneum was released. All ports were removed. The fascia was closed with 0 Vicryl in a [id number] fashion. The skin at all ports was closed with 4-0 Vicryl. The patient was taken to the recovery room in satisfactory condition. FINDINGS AT THE TIME OF SURGERY: Chronic cholecystitis. CC: DO SITA Lazaro
== END 2018-02-17 11:45 | disposition home or self-care (01) ==
LOC: SUR 08:24
PROVIDERS: ATTEND Surgery
DX: K81.1 Chronic cholecystitis (principal)
CPT/HCPCS: 47562; 00790; J1170; C1776; J0330; J1885; J2405; J2710

== ENCOUNTER 2018-03-07 18:33 | Emergency (ER) | payer BC ==
[2018-03-07] MEDS ORDERED: ONDANSETRON HCL IV 4 MG/2 ML VIAL IVP ONE (18:54)
[2018-03-07] MEDS ORDERED: MORPHINE SULFATE 4MG/ML PREFILLED SYRINGE IVP ONE (18:55)
--- NOTE | 2018-03-07 18:59 | Emergency Department Record ---
History of Present Illness - General Stated complaint: VOMITING Time Seen by Provider: 03/07/18 18:42 Source: Patient Mode of Arrival: Ambulatory Limitations: No limitations - History of Present Illness Initial comments: 22 yo male returns to the ED for evaluation following recent laparoscopic cholecystectomy 4 days ago with nausea, vomiting, and abdominal discomfort symptoms for the past 24 hours. Patient denies fevers, chills, or urinary symptoms. Patient reports that he had been doing well post-op until last night. Patient denies health problems at his baseline. MD complaint: Abdominal pain, Nausea, Vomiting Onset/Timin -: Hour(s) Description of Vomiting: Bilious Associated Abdominal Pain: Yes Location: Diffuse Radiation: None Severity: Moderate Quality: Cramping Consistency: Constant Improves with: None Worsens with: None Associated Symptoms: Nausea/vomiting - Related Data Previous Rx's Medication Instructions Recorded Ondansetron [Zofran Odt] 4 mg PO Q8H #20 tab.rapdis 01/20/18 Pantoprazole Sodium [Protonix] 20 mg PO DAILY #30 tablet. 01/20/18 Ondansetron HCl [Zofran] 4 mg PO Q6HR #20 tablet 02/02/18 Ondansetron [Zofran Odt] 4 mg PO Q8H #10 tab.rapdis 02/03/18 Promethazine HCl [Phenergan] 25 mg RC Q12HR #10 supp.rect 02/03/18 Promethazine HCl [Phenergan] 50 mg PO Q8H PRN #30 tablet 03/07/18 Allergies Allergy/AdvReac Type Severity Reaction Status Date / Time amoxicillin Allergy Intermediate PT UNSURE Verified 02/02/18 07:01 OF REACTION Review of Systems Constitutional: Denies: Chills, Fever, Malaise, Night sweats Eyes: Denies: Eye discharge, Eye pain ENT: Denies: Congestion, Ear pain, Epistaxis Respiratory: Denies: Cough, Dyspnea Cardiovascular: Denies: Chest pain, Dyspnea on exertion Endocrine: Denies: Fatigue, Heat or cold intolerance Gastrointestinal: Reports: Abdominal pain, Nausea, Vomiting. Denies: Constipation Genitourinary: Denies: Incontinence, Retention Musculoskeletal: Denies: Arthralgia, Back pain, Gout, Joint swelling Skin: Denies: Bruising, Change in color Neurological: Denies: Abnormal gait, Confusion, Headache Psychiatric: Denies: Anxiety Hematological/Lymphatic: Denies: Anemia, Blood Clots Past Medical History - SOCIAL HISTORY Smoking Status: Never smoker - RESPIRATORY Hx Respiratory Disorders: No - CARDIOVASCULAR Hx Cardio Disorders: No - NEURO Hx Neuro Disorders: No - GI Hx GI Disorders: Yes Hx Abdominal Pain: Yes Hx Nausea/Vomiting: Yes Hx Wt Loss/Wt Gain: Yes (25 lbs gain) - Hx Genitourinary Disorders: No - ENDOCRINE Hx Endocrine Disorders: No - MUSCULOSKELETAL Hx Musculoskeletal Disorders: No - PSYCH Hx Psych Problems: Yes Hx Anxiety: Yes Hx Depression: Yes - HEMATOLOGY/ONCOLOGY Hx Hematology/Oncology Disorders: No Family Medical History Hx Heart Disease: Mother, Grandparents Physical Exam - General General Appearance: Alert, Oriented x3, Cooperative, Moderate distress Limitations: No limitations - Head Head exam: Atraumatic, Normocephalic, Normal inspection Head exam detail: negative: Abrasion, Contusion, Ashford's sign, General tenderness, Hematoma, Laceration - Eye Eye exam: Normal appearance. negative: Conjunctival injection, Periorbital swelling, Periorbital tenderness, Scleral icterus - ENT Ear exam: negative: Auricular hematoma, Auricular trauma Nasal Exam: negative: Active bleeding, Discharge, Dried blood, Foreign body Mouth exam: negative: Drooling, Laceration, Muffled voice, Tongue elevation - Neck Neck exam: Normal inspection. negative: Meningismus, Tenderness - Respiratory Respiratory exam: Normal lung sounds bilaterally. negative: Respiratory distress, Rhonchi, Stridor, Wheezes - Cardiovascular Cardiovascular Exam: Regular rate, Normal rhythm, Normal heart sounds - GI/Abdominal GI/Abdominal exam: Soft, Tenderness (Diffuse TTP, no rebound or guarding symptoms are present). negative: Pulsatile mass, Rebound, Rigid - Rectal Rectal exam: Deferred - exam: Deferred - Extremities Extremities exam: Normal inspection. negative: Calf tenderness, Pedal edema, Tenderness - Back Back exam: Denies: CVA tenderness (R), CVA tenderness (L) - Neurological Neurological exam: Alert, Normal gait, Oriented X3 - Psychiatric Psychiatric exam: Normal affect, Normal mood - Skin Skin exam: Normal color. negative: Abrasion Type of lesion: negative: abrasion Course - Reevaluation(s) Reevaluation #1: 03/07/18 19:46 Labs reviewed, AST 85/ALT 88. Labs are otherwise grossly unremarkable for an acute process. Patient is currently in CT for imaging. Reevaluation #2: 03/07/18 20:22 CT Abdomen and Pelvis: S/P cholecystectomy No fluid collection Steatosis liver Mild bowel wall thickening of the transverse colon, likely under-distention, colitis less likely. Patient and his father were updated on all results, reports improvement in his symptoms. Will reassess in 30-45 minutes to determine disposition. Medical Decision Making - Lab Data Result diagrams: 03/07/18 19:10 03/07/18 19:10 Disposition Disposition: Discharge Clinical Impression: Nausea & vomiting Qualifiers: Vomiting type: unspecified Vomiting Intractability: non-intractable Qualified Code(s): R11.2 - Nausea with vomiting, unspecified Disposition: Home, Self-Care Condition: (2) Stable Instructions: Acute Nausea and Vomiting (ED) Additional Instructions: Return to ED if your symptoms worsen or if you have any concerns. Phenergan as directed. Follow-up with your family doctor in 3-5 days as directed. Prescriptions: Promethazine HCl [Phenergan] 50 mg PO Q8H PRN #30 tablet PRN Reason: Nausea/Vomiting Time of Disposition: 21:17 Quality - Quality Measures Quality Measures: N/A - Blood Pressure Screening Does Patient Have Any of the Following: No Blood Pressure Classification: Hypertensive Reading Systolic Measurement: 155 Diastolic Measurement: 122 Screening for High Blood Pressure: < First Hypertensive BP, F/U Documented > [ G8950] First Hypertensive Follow-up Interventions: Referral to alternative/primary care provider.
[2018-03-07] MEDS: 0.9 % SODIUM CHLORIDE 1000ML 1,000 ML IV SCH ×2 (19:10→20:08)
[2018-03-07 19:23] LABS: BASO % 0.3 % (0-6); EOS % 0.7 % (0-6); HEMATOCRIT 48.8 % (42.0-52.0); HEMOGLOBIN 17.4 gm/dl (14.0-18.0); LYMPH % 14.3 % (16-45); MEAN CELL VOLUME 91.6 fl (81-97); MEAN CORPUSCULAR HEMOGLOBIN 32.6 pg (27-33); MEAN CORPUSCULAR HGB CONC 35.7 g/dl (32-36); MEAN PLATELET VOLUME 8.7 fl (7.4-10.4); MONO % 5.7 % (0-9); PLATELET COUNT 402 K/uL (130-400); RED BLOOD COUNT 5.33 M/uL (4.40-5.70); RED CELL DISTRIBUTION WIDTH 13.5 % (11.5-14.5); WHITE BLOOD COUNT W/O DIFF 8.8 K/uL (4.2-12.2)
[2018-03-07 19:33] LABS: BLOOD UREA NITROGEN 6 mg/dL (6-20); CREATININE 0.9 mg/dL (0.7-1.2); EST GLOMERULAR FILTRATION RATE > 60 mL/min
[2018-03-07 19:34] LABS: TOTAL PROTEIN 8.7 g/dL (6.6-8.7)
[2018-03-07 19:36] LABS: GLUCOSE,RANDOM 144 mg/dL (74-109)
[2018-03-07 19:38] LABS: ALB/GLOB RATIO 1.6 (1.1-1.8); ALBUMIN 5.4 g/dL (4.0-5.0); ALT/SGPT 88 U/L (<41); AST/SGOT 85 U/L (10.0-50.0)
[2018-03-07 19:39] LABS: ALKALINE PHOSPHATASE 115 U/L (40-129); LIPASE 26 U/L (13-60)
[2018-03-07] MEDS ORDERED: PROMETHAZINE HCL 25 MG in 0.9 % SODIUM CHLORIDE 100ML 100 ML IVPB ONE (19:54)
[2018-03-07] MEDS ORDERED: HYDROMORPHONE HCL 2 MG/ML VIAL IVP ONE (19:54)
[2018-03-07] MEDS ORDERED: DIPHENHYDRAMINE HCL 50 MG/ML VIAL IVP ONE (19:54)
[2018-03-07] MEDS ORDERED: MORPHINE SULFATE 10 MG/ML VIAL IVP ONE (20:14)
[2018-03-07] MEDS ORDERED: 0.9 % SODIUM CHLORIDE 1000ML 1,000 ML IV SCH (20:15)
[2018-03-07] MEDS ORDERED: PROMETHAZINE HCL 25 MG TABLET PO ONE (21:18)
--- NOTE | 2018-03-10 10:09 | CT SCAN REPORT ---
EXAM: CT OF THE ABDOMEN AND PELVIS WITH CONTRAST HISTORY: DIFFUSE ABDOMINAL PAIN. INTRACTABLE VOMITING FOR TWO DAYS. GALLBLADDER SURGERY TWO WEEKS AGO. TECHNIQUE: Contrast enhanced helical CT examination of the abdomen and pelvis was performed including delayed images through the kidneys with 100 ml of Omnipaque 300 utilized. Oral contrast was not utilized limiting evaluation of bowel. Comparison: CT of the abdomen and pelvis with contrast dated 01/25/18. FINDINGS: The lung bases are clear. No pleural or pericardial effusion. Mild decreased density of the liver relative to the spleen is redemonstrated consistent with steatosis. No new focal abnormality is demonstrated within the liver. The spleen, pancreas, adrenal glands, and kidneys are normal in appearance, stable. The gallbladder is surgically absent. No fluid collection nor significant fat stranding within the gallbladder fossa. No biliary ductal dilatation. No intraabdominal nor retroperitoneal lymphadenopathy. The portal vein and splenic vein are patent. The central mesenteric vasculature is patent. The abdominal aorta and iliac arteries are normal in appearance. No pelvic mass, lymphadenopathy, or free pelvic fluid is seen. No intrinsic urinary bladder abnormality is identified. The apparent wall thickening previously demonstrated within the distal rectum is less pronounced. Again, this may relate to incomplete distention. No new bowel dilatation is seen. The appendix is visualized and normal in appearance. There is apparent borderline to mild wall thickening of the transverse colon likely due to incomplete distention. No free intraperitoneal air. No new lytic or blastic bone lesion. IMPRESSION: 1. INTERVAL CHOLECYSTECTOMY WITHOUT EVIDENCE OF A COMPLICATION. 2. MILD HEPATIC STEATOSIS REDEMONSTRATED. 3. PREVIOUSLY DEMONSTRATED APPARENT BORDERLINE TO MILD WALL THICKENING OF THE RECTUM IS LESS PRONOUNCED. 4. APPARENT BORDERLINE TO MILD WALL THICKENING OF THE TRANSVERSE COLON LIKELY RELATES TO INCOMPLETE DISTENTION RATHER THAN MILD COLITIS. JOB NUMBER: [id number] [facility]
== END 2018-03-07 21:30 | disposition home or self-care (01) ==
LOC: ER 18:33
DX: R11.2 Nausea with vomiting, unspecified (principal); Z90.49 Acquired absence of other specified parts of digestive tract
CPT/HCPCS: 74177; 80053; 83690; 85025; 96361; 96374; 96375; 99284; J1200; J2270; J2405; J2550; J7030; Q0170

== ENCOUNTER 2018-03-17 01:55 | Emergency (ER) | payer BC ==
[2018-03-17] MEDS ORDERED: ONDANSETRON HCL IV 4 MG/2 ML VIAL IVP ONE (02:08)
[2018-03-17] MEDS ORDERED: DIPHENHYDRAMINE HCL 50 MG/ML VIAL IVP ONE (02:11)
[2018-03-17] MEDS ORDERED: PROMETHAZINE HCL 25 MG in 0.9 % SODIUM CHLORIDE 100ML 100 ML IVPB ONE (02:11)
--- NOTE | 2018-03-17 02:14 | Emergency Department Record ---
History of Present Illness - General Chief complaint: Nausea, Vomiting, Diarrhea Stated complaint: NAUSEA/VOMITING Time Seen by Provider: 03/17/18 02:07 Source: Patient Mode of Arrival: Ambulatory Limitations: No limitations - History of Present Illness Initial comments: 22 yo male presents to ED for recurrent nausea, vomiting, and abdominal pain symptoms. Patient underwent cholecystectomy 4 weeks ago for similar symptoms, reports that he has been back to the ED for recurrent symptoms. Patient denies fevers, chills, or change in stools. Patient has been taking both Zofran and Phenergan for his symptoms without significant improvement. MD complaint: Abdominal pain, Nausea, Vomiting Onset/Timin -: Hour(s) Description of Vomiting: Bilious Associated Abdominal Pain: Yes Location: LUQ, RUQ, Epigastric Severity: Moderate Quality: Cramping Consistency: Constant Improves with: None Worsens with: None Associated Symptoms: Denies other symptoms - Related Data Home Medications Medication Instructions Recorded Confirmed Last Taken Dicyclomine HCl [Bentyl] 10 mg PO Q8H 03/17/18 03/17/18 Unknown Omeprazole 03/17/18 Unknown Previous Rx's Medication Instructions Recorded Ondansetron [Zofran Odt] 4 mg PO Q8H #20 tab.rapdis 01/20/18 Pantoprazole Sodium [Protonix] 20 mg PO DAILY #30 tablet. 01/20/18 Ondansetron HCl [Zofran] 4 mg PO Q6HR #20 tablet 02/02/18 Ondansetron [Zofran Odt] 4 mg PO Q8H #10 tab.rapdis 02/03/18 Promethazine HCl [Phenergan] 25 mg RC Q12HR #10 supp.rect 02/03/18 Promethazine HCl [Phenergan] 50 mg PO Q8H PRN #30 tablet 03/07/18 Allergies Allergy/AdvReac Type Severity Reaction Status Date / Time amoxicillin Allergy Intermediate PT UNSURE Verified 02/02/18 07:01 OF REACTION Travel Screening - Travel/Exposure Within Last 30 Days Have you traveled within the last 30 days?: No - Travel/Exposure Within Last Year Have you traveled outside the [place] in the last year?: No - Additonal Travel Details Have you been exposed to anyone with a communicable illness?: No - Travel Symptoms Symptom Screening: None Review of Systems Constitutional: Denies: Chills, Fever, Malaise, Night sweats Eyes: Denies: Eye discharge, Eye pain ENT: Denies: Congestion, Ear pain, Epistaxis Respiratory: Denies: Cough, Dyspnea Cardiovascular: Denies: Chest pain, Dyspnea on exertion Endocrine: Denies: Fatigue, Heat or cold intolerance Gastrointestinal: Reports: Abdominal pain, Nausea, Vomiting Genitourinary: Denies: Incontinence, Retention Musculoskeletal: Denies: Arthralgia, Back pain, Gout, Joint swelling Skin: Denies: Bruising, Change in color Neurological: Denies: Abnormal gait, Confusion, Headache, Seizure Psychiatric: Denies: Anxiety Hematological/Lymphatic: Denies: Anemia, Blood Clots Past Medical History - SOCIAL HISTORY Smoking Status: Never smoker Alcohol Use: Occasional Drug Use: None - RESPIRATORY Hx Respiratory Disorders: No - CARDIOVASCULAR Hx Cardio Disorders: No - NEURO Hx Neuro Disorders: No - GI Hx GI Disorders: Yes Hx Abdominal Pain: Yes Hx Nausea/Vomiting: Yes Hx Wt Loss/Wt Gain: Yes (25 lbs gain) - Hx Genitourinary Disorders: No - ENDOCRINE Hx Endocrine Disorders: No - MUSCULOSKELETAL Hx Musculoskeletal Disorders: No - PSYCH Hx Psych Problems: Yes Hx Anxiety: Yes Hx Depression: Yes - HEMATOLOGY/ONCOLOGY Hx Hematology/Oncology Disorders: No Family Medical History Any Significant Family History?: Yes Hx Heart Disease: Mother, Grandparents Physical Exam - General General Appearance: Alert, Oriented x3, Cooperative, Moderate distress Limitations: No limitations - Head Head exam: Atraumatic, Normocephalic, Normal inspection Head exam detail: negative: Abrasion, Contusion, Ashford's sign, General tenderness, Hematoma, Laceration - Eye Eye exam: Normal appearance. negative: Conjunctival injection, Periorbital swelling, Periorbital tenderness, Scleral icterus - ENT Ear exam: negative: Auricular hematoma, Auricular trauma Nasal Exam: negative: Active bleeding, Discharge, Dried blood, Foreign body Mouth exam: negative: Drooling, Laceration, Muffled voice, Tongue elevation - Neck Neck exam: Normal inspection. negative: Meningismus, Tenderness - Respiratory Respiratory exam: Normal lung sounds bilaterally. negative: Rales, Respiratory distress, Rhonchi, Stridor - Cardiovascular Cardiovascular Exam: Normal rhythm, Normal heart sounds, Tachycardia - GI/Abdominal GI/Abdominal exam: Soft, Tenderness (Moderate TTP to the epigastric, LUQ, RUQ regions on examination.). negative: Rebound, Rigid - Rectal Rectal exam: Deferred - exam: Deferred - Extremities Extremities exam: Normal inspection. negative: Pedal edema, Tenderness - Back Back exam: Denies: CVA tenderness (R), CVA tenderness (L) - Neurological Neurological exam: Alert, Normal gait, Oriented X3 - Psychiatric Psychiatric exam: Normal affect, Normal mood - Skin Skin exam: Normal color. negative: Abrasion Type of lesion: negative: abrasion Course Vital Signs 03/17/18 02:01 Temperature 98.8 F Pulse Rate [ 143 H Pulse Ox Probe] Respiratory 24 Rate Blood Pressure 158/97 [Left Arm] Pulse Ox 96 - Reevaluation(s) Reevaluation #1: 03/17/18 02:17 Previous records were reviewed, s/p lap. ronni 02/17. Will obtain laboratory studies, UA, administer anti-emetics, and likely admit for surgical consultation in the morning. Reevaluation #2: 03/17/18 02:50 Laboratory studies were reviewed: WBC 13.8 AG 23 AST 194 ALT 84 Alcohol 0.204 Awaiting UDS for further evaluation. Reevaluation #3: 03/17/18 03:18 UDS was reviewed, positive for THC and Opiates as well. Reevaluation #4: 03/17/18 03:41 Patient reassessed following 2nd liter NS, pulse improved to 109-111 from 143. No vomiting while in the ED. Patient reports "I don't think I'm ready to go home yet" when asked if he would like to call for ride home. Will continue to observe in ED. Reevaluation #5: 03/17/18 04:54 Patient reassessed, tolerating PO, and appears stable for discharge at this time. Patient has called his father for a ride home. Medical Decision Making - Lab Data Result diagrams: 03/17/18 02:05 03/17/18 02:05 Disposition Disposition: Discharge Clinical Impression: Marijuana use Vomiting Qualifiers: Vomiting type: unspecified Vomiting Intractability: non-intractable Nausea presence: unspecified Qualified Code(s): R11.10 - Vomiting, unspecified Alcohol intoxication Qualifiers: Complication of substance-induced condition: uncomplicated Qualified Code(s): F10.920 - Alcohol use, unspecified with intoxication, uncomplicated Disposition: Home, Self-Care Condition: (2) Stable Instructions: Alcohol Intoxication (ED), Acute Nausea and Vomiting (ED) Additional Instructions: Return to ED if your symptoms worsen or if you have any concerns. Alcohol in moderation. Follow-up with Dr. Aparicio in 1-3 days as directed. Forms: Patient Portal Access Time of Disposition: 04:55 Quality - Quality Measures Quality Measures: N/A - Blood Pressure Screening Does Patient Have Any of the Following: No Blood Pressure Classification: Hypertensive Reading Systolic Measurement: 143 Diastolic Measurement: 73 Screening for High Blood Pressure: < First Hypertensive BP, F/U Documented > [ G8950] First Hypertensive Follow-up Interventions: Referral to alternative/primary care provider.
[2018-03-17] MEDS ORDERED: 0.9 % SODIUM CHLORIDE 1000ML 1,000 ML IV SCH ×2 (02:15→03:15)
[2018-03-17 02:17] LABS: BASO % 0.2 % (0-6); EOS % 1.3 % (0-6); GRAN % 64.3 % (47-80); HEMATOCRIT 47.9 % (42.0-52.0); HEMOGLOBIN 16.8 gm/dl (14.0-18.0); LYMPH % 21.9 % (16-45); MEAN CELL VOLUME 93.4 fl (81-97); MEAN CORPUSCULAR HEMOGLOBIN 32.7 pg (27-33); MEAN CORPUSCULAR HGB CONC 35.1 g/dl (32-36); MEAN PLATELET VOLUME 8.7 fl (7.4-10.4); MONO % 12.3 % (0-9); PLATELET COUNT 405 K/uL (130-400); RED BLOOD COUNT 5.13 M/uL (4.40-5.70); RED CELL DISTRIBUTION WIDTH 13.9 % (11.5-14.5); WHITE BLOOD COUNT W/O DIFF 13.8 K/uL (4.2-12.2)
[2018-03-17] MEDS ORDERED: HYDROMORPHONE HCL 2 MG/ML VIAL IVP ONE (02:20)
[2018-03-17 02:23] LABS: BLOOD UREA NITROGEN 7 mg/dL (6-20); EST GLOMERULAR FILTRATION RATE > 60 mL/min
[2018-03-17 02:24] LABS: TOTAL PROTEIN 8.5 g/dL (6.6-8.7)
[2018-03-17 02:25] LABS: ALCOHOL 0.204 g/dL (0-0.010)
[2018-03-17 02:26] LABS: GLUCOSE,RANDOM 114 mg/dL (74-109)
[2018-03-17 02:28] LABS: ALT/SGPT 84 U/L (<41); AST/SGOT 194 U/L (10.0-50.0)
[2018-03-17 02:29] LABS: ALB/GLOB RATIO 1.7 (1.1-1.8); ALBUMIN 5.3 g/dL (4.0-5.0); ALKALINE PHOSPHATASE 144 U/L (40-129); LIPASE 34 U/L (13-60)
[2018-03-17 03:04] LABS: URINE APPEARANCE CLEAR; URINE BILIRUBIN NEGATIVE (NEGATIVE); URINE BLOOD SMALL (NEGATIVE); URINE COLOR YELLOW; URINE GLUCOSE (UA) NEGATIVE (NEGATIVE); URINE KETONE TRACE (NEGATIVE); URINE LEUKOCYTE ESTERASE NEGATIVE (NEGATIVE); URINE NITRITE NEGATIVE (NEGATIVE)
[2018-03-17 03:06] LABS: URINE BACTERIA NONE SEEN; URINE EPITHELIAL CELLS 0 - 2 (FEW); URINE WBC 0 - 2 (0-2/hpf)
[2018-03-17 03:09] LABS: AMPHETAMINE SCREEN URINE NOT DETECTED; BARBITURATE SCREEN URINE NOT DETECTED; BENZODIAZEPINE SCREEN URINE NOT DETECTED; COCAINE SCREEN URINE NOT DETECTED; METHADONE SCREEN URINE NOT DETECTED; METHAMPHETAMINE SCREEN NOT DETECTED; OPIATE SCREEN URINE DETECTED; OXYCODONE SCREEN URINE NOT DETECTED; PHENCYCLIDINE SCREEN URINE NOT DETECTED; PROPOXYPHENE SCREEN URINE NOT DETECTED; THC SCREEN URINE DETECTED; TRICYCLIC ANTIDEPRESSANT SCRN NOT DETECTED
== END 2018-03-17 05:06 | disposition home or self-care (01) ==
LOC: ER 01:55
DX: R11.2 Nausea with vomiting, unspecified (principal); R10.84 Generalized abdominal pain; F10.920 Alcohol use, unspecified with intoxication, uncomplicated; Y90.7 Blood alcohol level of 200-239 mg/100 ml; F12.10 Cannabis abuse, uncomplicated; Z90.49 Acquired absence of other specified parts of digestive tract
CPT/HCPCS: 99284 ×2; 96365; 96375; 96361; 83690; 85025; 80053; 81001; 80305; G0480; J1170; 80320; J1200; J2550; J7030

== ENCOUNTER 2018-03-17 22:28 | Emergency (ER) | payer BC ==
[2018-03-18] MEDS ORDERED: 0.9 % SODIUM CHLORIDE 1,000 ML BAG IV ONE (00:06)
[2018-03-18] MEDS ORDERED: ONDANSETRON HCL IV 4 MG/2 ML VIAL IVP ONE ×2 (00:06→07:01)
--- NOTE | 2018-03-18 00:09 | Emergency Department Record ---
History of Present Illness - General Stated complaint: NAUSEA,VOMITING, Time Seen by Provider: 03/18/18 00:06 Source: Patient Mode of Arrival: Ambulatory Limitations: No limitations - History of Present Illness Initial comments: 22 yo male presents with nausea, vomiting and pain. This has been a recurrent problem. He initially had his gall bladder removed with some positive results. Since then the symptoms have recurred at times. He admits to continued alcohol use on a frequent basis including tonight. No blood in the vomit or stools. He was in the ED last night as well. ETOH was elevated then. MD complaint: Abdominal pain, Nausea, Vomiting -: Hour(s) Description of Vomiting: Watery Description of Diarrhea: Water Location: Epigastric Radiation: None Severity: Moderate Quality: Constant Consistency: Constant Improves with: None Worsens with: Eating Context: Other Associated Symptoms: Loss of appetite - Related Data Previous Rx's Medication Instructions Recorded Ondansetron [Zofran Odt] 4 mg PO Q8H #20 tab.torreydis 01/20/18 Pantoprazole Sodium [Protonix] 20 mg PO DAILY #30 tablet. 01/20/18 Ondansetron HCl [Zofran] 4 mg PO Q6HR #20 tablet 02/02/18 Ondansetron [Zofran Odt] 4 mg PO Q8H #10 tab.rapdis 02/03/18 Promethazine HCl [Phenergan] 25 mg RC Q12HR #10 supp.rect 02/03/18 Promethazine HCl [Phenergan] 50 mg PO Q8H PRN #30 tablet 03/07/18 Promethazine HCl [Phenergan] 12.5 mg RC Q12H #12 supp 03/18/18 Allergies Allergy/AdvReac Type Severity Reaction Status Date / Time amoxicillin Allergy Intermediate PT UNSURE Verified 02/02/18 07:01 OF REACTION Review of Systems Constitutional: Denies: Chills, Fever, Malaise, Weakness Eyes: Denies: Eye discharge ENT: Denies: Congestion, Throat pain Respiratory: Denies: Cough, Dyspnea, Hemoptysis, Wheezes Cardiovascular: Denies: Chest pain, Palpitations, Syncope Endocrine: Denies: Fatigue Gastrointestinal: Reports: Nausea, Vomiting. Denies: Diarrhea Genitourinary: Denies: Dysuria, Frequency, Hematuria Musculoskeletal: Denies: Arthralgia, Back pain, Myalgia Skin: Denies: Bruising, Change in color, Rash Neurological: Denies: Numbness, Weakness Psychiatric: Denies: Anxiety Hematological/Lymphatic: Reports: Swollen glands. Denies: Blood Clots, Easy bleeding, Easy bruising Past Medical History - SOCIAL HISTORY Smoking Status: Never smoker Drug Use: None - RESPIRATORY Hx Respiratory Disorders: No - CARDIOVASCULAR Hx Cardio Disorders: No - NEURO Hx Neuro Disorders: No - GI Hx GI Disorders: Yes Hx Abdominal Pain: Yes Hx Nausea/Vomiting: Yes Hx Wt Loss/Wt Gain: Yes (25 lbs gain) - Hx Genitourinary Disorders: No - ENDOCRINE Hx Endocrine Disorders: No - MUSCULOSKELETAL Hx Musculoskeletal Disorders: No - PSYCH Hx Psych Problems: Yes Hx Anxiety: Yes Hx Depression: Yes - HEMATOLOGY/ONCOLOGY Hx Hematology/Oncology Disorders: No Family Medical History Hx Heart Disease: Mother, Grandparents Course Vital Signs 03/17/18 23:26 Temperature 98.2 F Pulse Rate [ 114 H Pulse Ox Probe] Respiratory 18 Rate Blood Pressure 151/111 [Left Arm] Pulse Ox 96 - Reevaluation(s) Reevaluation #1: 03/18/18 00:53 The labs were reviewed The CBC is unremarkable The Alcohol is 0.238 03/18/18 02:11 The patient was updated on his labs He was informed of the alcohol level I informed him that his alcohol use is concerning for dependence and abuse I asked if would accept referral for substance abuse. He declined at this time. 03/18/18 02:48 The patient was informed his level is too high to drive. He does not want to call for a ride. 03/18/18 03:47 Sleeping comfortably. 03/18/18 07:10 The patient has not had vomiting for several hours His repeat ETOH was 0.083 at 06:30 He will be observed until 8am after PO challenge He is clinically sober without any signs of impairment. He will be well under legal limits at that time. We discuss his high risk behavior again. He was strongly urged to avoid alcohol , discuss this with his doctor as well. Medical Decision Making - Lab Data Result diagrams: 03/18/18 00:20 03/18/18 00:20 Disposition Disposition: Discharge Clinical Impression: Alcohol abuse Vomiting Qualifiers: Vomiting type: unspecified Vomiting Intractability: unspecified Nausea presence : with nausea Qualified Code(s): R11.2 - Nausea with vomiting, unspecified Alcohol intoxication Qualifiers: Complication of substance-induced condition: uncomplicated Qualified Code(s): F10.920 - Alcohol use, unspecified with intoxication, uncomplicated Disposition: Home, Self-Care Condition: (1) Good Instructions: At-Risk Alcohol Use (ED), Acute Nausea and Vomiting (ED) Additional Instructions: You must stop your alcohol use as it is effecting your health [place] liquid diet Call your doctor for close follow up Prescriptions: Promethazine HCl [Phenergan] 12.5 mg RC Q12H #12 supp Forms: Patient Portal Access Time of Disposition: 08:00 Quality - Quality Measures Quality Measures: N/A - Blood Pressure Screening Does Patient Have Any of the Following: No Blood Pressure Classification: Hypertensive Reading Systolic Measurement: 133 Diastolic Measurement: 110 Screening for High Blood Pressure: < Pre-Hypertensive BP, F/U Documented > [ G8950] Pre-Hypertensive Follow-up Interventions: Referral to alternative/primary care provider.
[2018-03-18 00:29] LABS: BASO % 0.7 % (0-6); EOS % 2.5 % (0-6); GRAN % 50.4 % (47-80); HEMATOCRIT 44.5 % (42.0-52.0); HEMOGLOBIN 15.6 gm/dl (14.0-18.0); LYMPH % 31.5 % (16-45); MEAN CELL VOLUME 92.9 fl (81-97); MEAN CORPUSCULAR HEMOGLOBIN 32.6 pg (27-33); MEAN CORPUSCULAR HGB CONC 35.1 g/dl (32-36); MEAN PLATELET VOLUME 8.6 fl (7.4-10.4); MONO % 14.9 % (0-9); PLATELET COUNT 315 K/uL (130-400); RED BLOOD COUNT 4.79 M/uL (4.40-5.70); RED CELL DISTRIBUTION WIDTH 13.8 % (11.5-14.5); WHITE BLOOD COUNT W/O DIFF 5.6 K/uL (4.2-12.2)
[2018-03-18 00:42] LABS: BLOOD UREA NITROGEN 4 mg/dL (6-20); CREATININE 0.7 mg/dL (0.7-1.2); EST GLOMERULAR FILTRATION RATE > 60 mL/min
[2018-03-18 00:44] LABS: ALCOHOL 0.238 g/dL (0-0.010)
[2018-03-18 00:45] LABS: GLUCOSE,RANDOM 94 mg/dL (74-109)
[2018-03-18 00:47] LABS: ALT/SGPT 79 U/L (<41); AST/SGOT 142 U/L (10.0-50.0)
[2018-03-18 00:48] LABS: ALB/GLOB RATIO 1.6 (1.1-1.8); ALBUMIN 4.9 g/dL (4.0-5.0); ALKALINE PHOSPHATASE 128 U/L (40-129); LIPASE 27 U/L (13-60)
[2018-03-18] MEDS ORDERED: PROMETHAZINE HCL 12.5 MG in 0.9 % SODIUM CHLORIDE 100ML 100 ML IVPB ONE (01:24)
== END 2018-03-18 08:14 | disposition home or self-care (01) ==
LOC: ER 22:28
DX: F10.120 Alcohol abuse with intoxication, uncomplicated (principal); R11.2 Nausea with vomiting, unspecified; Y90.7 Blood alcohol level of 200-239 mg/100 ml; Z90.49 Acquired absence of other specified parts of digestive tract
CPT/HCPCS: 99284 ×2; 96376; 96365; 96375; 83690; 85025; 80053; G0480; J2405; 80320; J2550; J7030